=== PATIENT | male | born 1960 | race Caucasian/White ===

== ENCOUNTER 2018-05-10 17:01 | Emergency (ER) | payer BC ==
[~2018-05-10] VITALS: Ht 200.7 cm; Wt 84.1 kg
[2018-05-10 17:17] VITALS: TEMP 97.6
[2018-05-10 17:51] LABS: BASO # 0.1 (0.0-0.2); BASO % 0.7 % (0.0-2.0); EOS # 0.1 (0.0-0.7); EOS % 0.6 % (0-4.0); GRAN # 6.9 (1.4-6.5); GRAN % 78.3 % (42.2-75.2); HEMATOCRIT 42.6 % (42.0-52.0); HEMOGLOBIN 14.8 g/dl (13.5-18.0); LYMPH # 1.3 (1.2-3.4); LYMPH % 14.7 % (20.0-51.0); MEAN CELL VOLUME 88 fl (80.0-100.0); MEAN CORPUSCULAR HEMOGLOBIN 31 pg (27.0-31.0); MEAN CORPUSCULAR HGB CONC 35 g/dl (33.0-37.0); MEAN PLATELET VOLUME 9.3 fl (7.4-10.4); MONO # 0.5 (0.1-0.6); MONO % 5.1 % (1.7-9.3); PLATELET COUNT 162 K/mm3 (130-400); RED BLOOD COUNT 4.85 M/mm3 (4.20-5.60); REDCELL DISTRIBUTION WIDTH-CV 12.3 % (11.5-14.5)
[2018-05-10 18:02] LABS: ALBUMIN 4.2 gm/dL (3.5-5.0); BILIRUBIN,TOTAL 0.7 mg/dL (0.0-1.0); CALCIUM 9.2 mg/dL (8.4-10.2); CREATININE, serum 1.16 mg/dL (0.66-1.25)
[2018-05-10 19:20] LABS: COLLECTION METHOD CLEAN CATCH
[2018-05-10 19:29] LABS: MUCOUS Present /lpf; PH 5 (5-8); SQUAMOUS EPITHELIAL 0-2 /hpf; URINE APPEARANCE Clear; URINE BACTERIA None Seen /hpf; URINE BILIRUBIN Negative (NEGATIVE); URINE BLOOD 1+ (NEGATIVE); URINE COLOR Yellow; URINE GLUCOSE Negative (NEGATIVE); URINE KETONE Negative (NEGATIVE); URINE LEUKOCYTE ESTERASE Negative (NEGATIVE); URINE NITRATE Negative (NEGATIVE); URINE PROTEIN(semi-quant) Negative (NEGATIVE); URINE RBC 0-2 /hpf; URINE UROBILINOGEN Negative (NEGATIVE)
[2018-05-11 05:37] LABS: HEMATOCRIT 42.2 % (42.0-52.0); HEMOGLOBIN 14.4 g/dl (13.5-18.0)
[2018-05-11 09:40] VITALS: BP 118/75; PULSE 59
== END 2018-05-11 09:42 | disposition home or self-care (01) ==
LOC: COL.ER 17:01
PROVIDERS: Emergency Medicine; Surgery
DX: S40.011A Contusion of right shoulder, initial encounter (principal); S20.211A Contusion of right front wall of thorax, initial encounter; S80.212A Abrasion, left knee, initial encounter; S80.211A Abrasion, right knee, initial encounter; S20.411A Abrasion of right back wall of thorax, initial encounter; J93.9 Pneumothorax, unspecified; Z23 Encounter for immunization; Z88.0 Allergy status to penicillin; V19.9XXA Pedal cyclist (driver) (passenger) injured in unspecified traffic accident, initial encounter; Y92.410 Unspecified street and highway as the place of occurrence of the external cause
CPT/HCPCS: J0690; J1885; J2405; J3010; J7030

== ENCOUNTER → 2018-05-12 | Outpatient (CLI) | payer BC | LOC: COL.RAD 07:28 | DX: J93.9 Pneumothorax, unspecified (principal) ==

== ENCOUNTER → 2018-05-18 | Outpatient (CLI) | payer BC | LOC: COL.RAD 08:13 | DX: J93.9 Pneumothorax, unspecified (principal) ==

== ENCOUNTER 2018-11-28 20:04 | Emergency (ER) | payer BC ==
[~2018-11-28] VITALS: Ht 198.1 cm; Wt 84.1 kg
[2018-11-28 20:14] VITALS: BP 128/84; TEMP 99
[2018-11-28 20:47] LABS: BASO # 0.1 (0.0-0.2); BASO % 1.4 % (0.0-2.0); EOS # 0.3 (0.0-0.7); EOS % 3.9 % (0-4.0); GRAN # 4.3 (1.4-6.5); GRAN % 65.9 % (42.2-75.2); HEMATOCRIT 39.4 % (42.0-52.0); HEMOGLOBIN 13.4 g/dl (13.5-18.0); LYMPH # 1.3 (1.2-3.4); LYMPH % 20.6 % (20.0-51.0); MEAN CELL VOLUME 88 fl (80.0-100.0); MEAN CORPUSCULAR HEMOGLOBIN 30 pg (27.0-31.0); MEAN CORPUSCULAR HGB CONC 34 g/dl (33.0-37.0); MEAN PLATELET VOLUME 8.9 fl (7.4-10.4); MONO # 0.5 (0.1-0.6); PLATELET COUNT 191 K/mm3 (130-400); REDCELL DISTRIBUTION WIDTH-CV 12.4 % (11.5-14.5)
[2018-11-28 20:55] LABS: ALBUMIN 3.6 gm/dL (3.5-5.0); BILIRUBIN,TOTAL 0.4 mg/dL (0.0-1.0); CALCIUM 8.9 mg/dL (8.4-10.2); CREATININE, serum 1.03 (0.66-1.25); POTASSIUM 4.1 mmol/L (3.4-5.0); TOTAL PROTEIN 6.7 gm/dL (6.4-8.2)
[2018-11-28] MEDS ORDERED: XARELTO STARTER20 MG PO (21:26)
[2018-11-28 21:42] VITALS: PULSE 75
== END 2018-11-28 21:44 | disposition home or self-care (01) ==
LOC: COL.ER 20:04
PROVIDERS: Physician Assistant
DX: I82.4Z1 Acute embolism and thrombosis of unspecified deep veins of right distal lower extremity (principal)

== ENCOUNTER → 2018-11-30 | Outpatient (CLI) | payer BC ==
[~2018-11-30] MED LIST: XARELTO STARTER20 MG PO
== END ==
LOC: COL.VAS 12:27
DX: I82.4Z1 Acute embolism and thrombosis of unspecified deep veins of right distal lower extremity (principal); I82.411 Acute embolism and thrombosis of right femoral vein

== ENCOUNTER → 2018-12-10 | Outpatient (CLI) | payer BC | LOC: COL.RAD 12:21 | DX: E04.2 Nontoxic multinodular goiter (principal) ==

== ENCOUNTER → 2020-03-20 | Outpatient (CLI) | payer BC | LOC: COL.RAD 10:15 | DX: I77.810 Thoracic aortic ectasia (principal) | CPT/HCPCS: Q9967 ==

== ENCOUNTER → 2020-04-25 | Outpatient (CLI) | payer BC | LOC: COL.RAD 12:29 | DX: Z01.812 Encounter for preprocedural laboratory examination (principal); I77.810 Thoracic aortic ectasia; R22.2 Localized swelling, mass and lump, trunk; I25.10 Atherosclerotic heart disease of native coronary artery without angina pectoris | CPT/HCPCS: Q9967 ==

== ENCOUNTER 2020-10-01 06:57 | Outpatient (CLI) | payer BC ==
[2020-10-01] VITALS (16 sets, daily range): BP systolic 112–129; BP diastolic 70–86; PULSE 45–67
[~2020-10-01] VITALS: Ht 200.7 cm; Wt 91.3 kg
[2020-10-01] MEDS ORDERED: ONE-A-DAY ESSE1 EACH PO (07:23)
[2020-10-01] MEDS ORDERED: XARELTO10 MG PO (07:23)
[2020-10-01] MEDS ORDERED: TUMERIC (07:25)
[2020-10-01] MEDS ORDERED: EPA FISH OIL1 SGL PO (07:26)
[2020-10-01] MEDS ORDERED: CLARITIN 1010 MG/TAB PO (07:26)
--- NOTE | 2020-10-01 08:00 | NUR ---
PT WAS TAKEN TO CT AND PLACED ON TABEL. MONITORING EQUIPMENT PLACED.
--- NOTE | 2020-10-01 10:45 | NUR ---
Discharge instructions given to pt.pt verbalizes understanding.INT removed,catheter tip intact.pt escorted out via wheelchair by this nurse.
== END 2020-10-01 11:26 | disposition home or self-care (01) ==
LOC: COL.RAD
DX: R91.1 Solitary pulmonary nodule (principal)
CPT/HCPCS: 32107

== ENCOUNTER → 2021-06-28 | Outpatient (CLI) | payer BC ==
[~2021-06-28] MED LIST changes: +CLARITIN 1010 MG/TAB PO; +EPA FISH OIL1 SGL PO; +ONE-A-DAY ESSE1 EACH PO; +TUMERIC; +XARELTO10 MG PO
== END ==
LOC: COL.VAS 13:32
DX: I82.461 Acute embolism and thrombosis of right calf muscular vein (principal)

== ENCOUNTER → 2023-07-27 | Outpatient (CLI) | payer BC | LOC: COL.RAD 12:46 | DX: M79.89 Other specified soft tissue disorders (principal); R93.6 Abnormal findings on diagnostic imaging of limbs; Z71.2 Person consulting for explanation of examination or test findings | CPT/HCPCS: Q9967 ==